=== PATIENT | female | born 1955 | race Caucasian/White ===

== ENCOUNTER → 2023-08-22 | Outpatient (CLI) | payer MEDICARE ==
[2023-08-22 09:50] LABS: Partial Thromboplastin Time 24.1 sec (22.0-30.0); Prothrombin Time 10.7 sec (10.0-12.5)
[2023-08-22 14:44] LABS: Basophils # (A) 0.04 X 10*3/uL (0.00-0.10); Eosinophils # (A) 0.08 X 10*3/uL (0.04-0.35); HCT 42.5 % (37.2-46.3); Immature Grans, Automated 0 %; Lymphocytes # (A) 1.26 X 10*3/uL (0.90-5.00); MCH 30.5 pg (27.0-32.0); MCHC 32.9 g/dL (32.0-37.0); MCV 92.6 FL (80.0-97.0); Mean Platelet Volume 10.4 FL (9.5-12.2); Monocytes # (A) 0.36 X 10*3/uL (0.20-1.00); Monocytes % (A) 8.9 %; NRBC Per 100 WBC 0 X 10*3/uL (0.00-0.01); Neutrophils # (A) 2.32 X 10*3/uL (1.80-7.70); Neutrophils % (A) 57.1 %; Platelet Count 274 X 10*3/uL (140-440); RBC 4.59 X 10*6/uL (4.10-5.20); RDW 15.9 % (11.5-14.5); WBC 4.06 X 10*3/uL (4.50-10.00)
[2023-08-22 15:07] LABS: ALT 20 U/L (8-44); AST 25 U/L (13-35); Albumin 4.8 g/dL (3.8-4.9); Albumin/Globulin Ratio 1.71 Ratio (1.60-3.17); Alkaline Phosphatase 66 U/L (41-126); Blood Urea Nitrogen 15.2 mg/dL (9.0-27.0); Calcium 9.7 mg/dL (8.7-10.3); Carbon Dioxide 23.7 mmol/L (21.6-31.8); Chloride 107 mmol/L (96-109); Chol/HDL Ratio 3.01 Ratio; Globulin 2.8 g/dL (1.6-3.3); Glucose 134 mg/dL (70-110); LDL Cholesterol,Calculated 123.1 mg/dL (0.0-131.0); Potassium 4.2 mmol/L (3.5-5.5); Sodium 143 mmol/L (135-145); T4, Free (Free Thyroxine) 1.52 ng/dL (0.80-1.80); Total Bilirubin 1.2 mg/dL (0.3-1.2); Total Protein 7.6 g/dL (6.2-8.2)
== END | disposition home or self-care (01) ==
LOC: LABPAT 08:56
PROVIDERS: ATTEND Orthopaedic Surgery
DX: Z01.818 Encounter for other preprocedural examination (principal); I51.89 Other ill-defined heart diseases; M17.12 Unilateral primary osteoarthritis, left knee; Z22.322 Carrier or suspected carrier of Methicillin resistant Staphylococcus aureus; R94.31 Abnormal electrocardiogram [ECG] [EKG]
CPT/HCPCS: 36415; 80053; 80061; 82306; 84439; 84443; 85025; 85610; 85730; 87070; 93005

== ENCOUNTER 2023-09-19 05:38 | Inpatient (IN) | payer MEDICARE ==
[~2023-09-19 05:38] MED LIST: ACETAMINOPHEN TAB 500 MG TAB PO PRN; TRANEXAMIC 1,000 MG/100ML-NACL 1,000 MG in SALINE 1 100ML.BAG IVPB PRN
[2023-09-19] MEDS ORDERED: LIDOCAINE 1% (10MG/ML) FOR IV START INTRADERMA PRN (05:40)
[2023-09-19] MEDS: IV FLUID CONTINUATION 1,000 ML IV ONE (06:07)
[2023-09-19] MEDS: DEXAMETHASONE SOD PHOSPHATE 4 MG/ML 1 ML VIAL IV ONE (06:24)
[2023-09-19] MEDS: GABAPENTIN 300 MG CAP PO PRN (06:24)
[2023-09-19] MEDS: MELOXICAM 7.5 MG TAB PO PRN (06:24)
[2023-09-19] MEDS: LACTATED RINGERS 1,000 ML IV SCH (06:24)
[2023-09-19] MEDS: ONDANSETRON 4 MG/2 ML VIAL IVP ONE (06:24)
[2023-09-19] MEDS: MIDAZOLAM 2 MG/2 ML VIAL IVP ONE (06:34)
[2023-09-19] MEDS ORDERED: HYDROmorphone (PF) 1 MG/ML ONE (06:56)
[2023-09-19] MEDS ORDERED: TRANEXAMIC 1,000 MG/100ML-NACL PREMIX BAG ONE (06:56)
[2023-09-19] MEDS ORDERED: SODIUM CHLORIDE 0.9% (PF) 10 ML VIAL ONE (06:56)
[2023-09-19] MEDS ORDERED: MIDAZOLAM 2 MG/2 ML VIAL ONE (06:56)
[2023-09-19] MEDS ORDERED: DEXAMETHASONE SOD PHOSPHATE 4 MG/ML 1 ML VIAL ONE (06:56)
[2023-09-19] MEDS ORDERED: PHENYLEPHRINE 10 MG/ML VIAL ONE (06:56)
[2023-09-19] MEDS ORDERED: ROPIVACAINE 5 MG/ML 30 ML VIAL ONE (06:56)
[2023-09-19] MEDS ORDERED: PROPOFOL 10 MG/ML 20 ML VIAL IV ONE (06:56)
[2023-09-19] MEDS: ceFAZolin 1,000 MG in SODIUM CHLORIDE 0.9% 1,000 ML IRRIGATION ONE (07:00)
[2023-09-19] MEDS: ceFAZolin 3 GM in SODIUM CHLORIDE 0.9% 100 ML IVPB PRN (07:00)
[2023-09-19] MEDS: LACTATED RINGERS 1,000 ML IV ONE (08:10)
--- NOTE | 2023-09-19 08:44 | P.OP ---
Date of Procedure: 09/19/23 Preoperative Diagnosis: Severe osteoarthritis left knee Postoperative Diagnosis: Severe osteoarthritis left knee Procedure(s) Performed: Left total knee arthroplasty Implants: [employer] Nephew Journey II Oxinium Bi-cruciate stabilized femoral component size 6, left [employer] Journey nonporous tibial baseplate size 5, left [employer] Journey II, constraines articular insert, size 11 mm, Size 5-6, left [employer] Journey Kandy II resurfacing patellar component, oval, 32 mm All components were cemented using Palacos R bone cement The articulation is Oxinium on polyethylene Anesthesia: spinal Surgeon: Charan Rivero Treating Plant Operator #1: Esperanza Santiago Estimated Blood Loss (ml): 75 Pathology: none sent Condition: stable Disposition: PACU Indications for Procedure: The patient's knee is end-stage, and conservative management has failed. The operation of knee replacement has been discussed at length in the office, as well as potential risks and complications. These are inclusive of, but not limited to: Infection, bleeding, scarring, discomfort, stiffness, blood vessel and nerve damage, need for further surgery, failure to relieve symptoms, persistence, recurrence, or worsening of problems, loosening, dislocation, wear, blood clot, pulmonary embolism, , gait dysfunction, stiffness, and other risks as discussed in the office. Patient elects to proceed and the consent form has been signed. Operative Findings: The operative findings are consistent with severe osteoarthritis of the left knee Description of Procedure: The patient was seen in the preoperative area, the consent was reviewed and the operative site was marked with a skin marker. The patient verified the procedure and the operative site. An adductor canal pain catheter and an iPACK block were placed by anesthesia in the preoperative area. The patient was then brought to the operating room and positioned on the operating room table in the supine position. Preoperative antibiotics and a gram of tranexamic acid were given intravenously. A spinal anesthetic was administered by the anesthesia department. Care was taken to make sure that all pressure points were adequately padded. A tourniquet was placed on the upper thigh and the lower extremity was prepped with ChloraPrep and draped in usual sterile fashion. A universal time-out was then performed which confirmed the patient's name, surgical site, ALLERGIES, and consent. The lower extremity was then exsanguinated and tourniquet was inflated to 250 mmHg. A standard anterior midline approach to the knee was performed. The skin and subcutaneous tissue were sharply dissected down to the patellar tendon. A medial parapatellar arthrotomy was then performed. The knee was then extended, the patellar was everted, and the knee was flexed. The infra-patellar fat pad was removed in order to enhance exposure. The anterior horns of both menisci were excised, and a release was performed to the posterior medial aspect of the knee. On gross visual inspection, there was complete loss of articular cartilage in the medial and patellofemoral joint spaces. There was also significant cartilage damage in the lateral compartment. There were multiple periarticular osteophytes globally about the knee which were then removed with a Ronguer. The femoral canal was then opened with the 9.5 mm intramedullary drill. The 8 mm intramedullary natahniel was then inserted into the femoral canal with the distal femoral cutting guide set for 5 of valgus. The distal femoral cutting block was then pinned in place. The intramedullary nathaniel was then removed, and the distal femur was then cut. The cutting block was then removed and the cut was checked for symmetry. The resected bone was then measured to co nfirm the appropriate distal femoral resection. Next, the sizing guide was then placed and set for 3 external rotation based off of the epicondylar axis and [place]'s line. Pins were then placed and the drill holes, and the femur was sized with the sizing stylus. The pins were then removed, and the sizing guide was then removed. The spikes of the appropriate size femoral block was then placed into the predrilled holes, and malleted into place. Two 45 mm pins were then placed into the fixation holes on the cutting block. An tito wing was then used to ensure there would be no notching with the anterior cut. The anterior condyles were cut without notching. The anterior chord cut was then performed, followed by the posterior cut, posterior chamfer cut, and the anterior chamfer cut. The collateral ligaments were protected during the entire process. The cutting block was then removed. Any remaining bone and osteophytes were removed from the femur with a Ronguer. Attention was then directed to the tibia. The remaining ACL was removed with a Ronguer, and the tibia was then gently subluxed forward with a large bent knee retractor. Any remaining menisci were excised. The posterior lateral corner was cauterized in order to coagulate the lateral geniculate artery. The extra medullary tibial cutting guide was then placed, set for the appropriate rotation, slope, and depth of resection. The proximal tibia cutting guide was then pinned in place. Proximal tibia was then cut and sized. A curved osteotome was then used to remove any posterior osteophytes from the distal femur. The femoral trial was placed. The box reaming guide was then used to remove the intracondylar femoral bone. The box notch trial was then placed. The tibial trial was placed with the appropriate-sized insert. The knee was able to fully extend and flex to 130 and was stable throughout all range of motion. The knee was then extended and the patella was everted. Patella was then measured, and then using an osteotomy guide, the patella was cut at the appropriate level. The patellar component was sized. The patellar drill guide was placed and the patella was drilled. The patella trial was then placed. The knee was then taken through range of motion with the patella trial and the patella tracked normally using the no thumbs technique. The patella trial was then removed. Th e knee was then flexed and lug holes were drilled through the femoral trial and the femoral trial was then removed. The tibial was then re-exposed, and the tibial broach guide was then pinned in place after it was set for the appropriate rotation to allow for the most coverage without overhang. The tibia was then reamed and broached. The femoral canal was plugged with autologous bone. The cut surfaces of bone were then irrigated with pulsatile lavage. The knee was also irrigated with Irrisept solution. The components were then opened, the cement was mixed. Cement was placed on the backside of the femoral, tibial, and patellar components. Cement was then applied to the tibial surface and pressurized into the surface using finger pressurization technique. The tibial component was the n applied and excess cement was removed after it was impacted securely noted to be flush with the cut surface. In similar fashion, the cement was applied to the cut femoral surface, pressurized and using finger pressurization the component was impacted in place. Excess cement was removed. The polyethylene spacer was then implanted and locked into position. Patellar component was then applied in a similar technique and the patellar clamp was used to hold patella in place while the cement hardened. The knee was held in full extension while the cement hardened. Once the cement had fully hardened, the knee was reinspected. Any other cement extrusion was removed the final range of motion testing showed range of motion from 0-115 with excellent stability, both medial and laterally and appropriate alignment of the leg. Patella tracked normally. After the cemented hardened, the tourniquet was released and hemostasis was obtained. A second gram of transexamic acid was given intravenously. The knee was again irrigated. The knee was again taken through range of motion and found to be stable throughout all range of motion of 0-115, and the patella tracked normally. The fascia was then closed with 0 Vicryl followed by #2 strata fix suture. The subcutaneous tissue was closed with 3-0 Vicryl and 3-0 strata fix. Exofin glue was used for the skin and placed with the knee in flexion. After the glue had dried, and Optafoam silver impregnated dressing was applied. A lightly compressive dressing was applied using web roll and Godlen wrap. Patient was then transferred to the stretcher and taken to recovery room in stable condition. Sponge and needle counts were correct. The assistant golf course superintendent EUNICE Rojas was required due the complexity surgery and the need for a skilled certified surgical assistant. She assisted in positioning, draping, retraction, and closure of the wound.
[2023-09-19] MEDS ORDERED: NA PHOS,M-B/NA PHOS,DI-BA 133 ML ENEMA RECTAL PRN (09:28)
[2023-09-19] MEDS ORDERED: bisacodyL 10 MG SUPP RECTAL PRN (09:28)
[2023-09-19] MEDS ORDERED: MAGNESIUM HYDROXIDE 2,400 MG/30 ML CUP PO PRN (09:28)
[2023-09-19] MEDS ORDERED: NALOXONE 0.4 MG/ML 1 ML VIAL IV PRN (09:28)
[2023-09-19] MEDS ORDERED: HYDROmorphone 0.5 MG/0.5 ML SYRINGE IVP PRN ×2 (09:28)
[2023-09-19] MEDS ORDERED: ONDANSETRON 4 MG/2 ML VIAL IVP PRN (09:28)
[2023-09-19] MEDS ORDERED: HYDROcodone/APAP 7.5-325MG 1 EACH TAB PO PRN (09:29)
[2023-09-19] MEDS: HYDROmorphone 0.5 MG/0.5 ML SYRINGE IVP PRN (09:59)
--- NOTE | 2023-09-19 10:04 | XR ---
EXAMINATION TYPE: XR knee limited LT DATE OF EXAM: 09/19/2023 COMPARISON: NONE CLINICAL INDICATION: Female, 68 years old with history of Evaluation for Postop abnormality and align ment; FINDINGS: Extensive soft tissue edema and emphysema\air which could be postsurgical. Postoperative changes comp atible with knee arthroplasty surgery. Anatomic alignment. IMPRESSION: Postoperative changes.
[2023-09-19] MEDS: SODIUM CHLORIDE 0.9% 1,000 ML IV SCH (10:11)
[2023-09-19] MEDS: droPERidol 5 MG/2 ML VIAL IVP ONE (11:23)
[2023-09-19] MEDS: HYDROcodone/APAP 7.5-325MG 1 EACH TAB PO PRN (12:14)
--- NOTE | 2023-09-19 14:57 | P.CONS ---
History of Present Illness - Reason for Consult Consult date: 09/19/23 - History of Present Illness Patient is a 68-year-old female with history of hypertension, hypothyroidism, GERD presenting for elective left total knee arthroplasty. [facility] [place] physicians consulted for medical management. Currently denying any chest pain, shortness of breath, abdominal pain, nausea, vomiting, urinary or bowel complaints. Denies any lightheadedness, or palpitations. Labs not available. Knee x-ray shows postop changes. Vital signs reviewed, currently within normal limits. At 1 point blood pressure was 87/70. Patient saturating well on room air. Pertinent positives and negatives as discussed in HPI, a complete review of systems was performed and all other systems are negative. Patient seen and examined at bedside. Vital signs reviewed General: nontoxic, no distress, appears at stated age, morbidly obese Derm: warm, dry, knee dressing clean, dry, intact Head: atraumatic, normocephalic, symmetric Eyes: EOMI, no lid lag, anicteric sclera, pupils equal round reactive to light ENT: Nose and ears atraumatic Neck: No thyromegaly, supple Mouth: no lip lesion, mucus membranes moist Cardiovascular: S1S2 reg, no murmur, no edema Lungs: clear to auscultation bilateral, no rhonchi, no rales, no wheeze, no accessory muscle use Abdominal: soft, nontender to palpation, no guarding, no appreciable organomegaly Ext: no gross muscle atrophy, muscle strength muscle strength 5 out of 5 in all 4 extremities, no contractures Neuro: CN II-XII grossly intact Psych: Alert, oriented, appropriate affect Assessment/Plan: Status post left total knee arthroplasty -Pain control with oral [place] as needed, IV Dilaudid as needed, monitor for sedation -Senna 2 nightly, milk of magnesium as needed, Fleet enema as needed, bisacodyl as needed -Aspirin 325 twice daily for DVT prophylaxis Hypertension -Patient had episode of hypotension earlier, hold home lisinopril and amlodipine. -If blood pressure within normal limits tomorrow, restart Hypothyroidism -Continue Synthroid 200 mcg daily GERD -Continue Protonix 40 mg daily Neuropathic pain -Continue duloxetine 90 nightly Thank you for allowing us to participate in the care of this pleasant patient. Do not hesitate to contact us with questions. Someone can be reached from the [facility] hospitalist group all hours of the day at [phone] or via [employer]. Past Medical History Past Medical History: Hypertension, Osteoarthritis (OA), Thyroid Disorder Additional Past Medical History / Comment(s): back pain, tinnitus History of Any Multi-Drug Resistant Organisms: None Reported Past Surgical History: Cholecystectomy, Joint Replacement Additional Past Surgical History / Comment(s): rt hip replaced Past Anesthesia/Blood Transfusion Reactions: No Reported Reaction Additional Past Anesthesia/Blood Transfusion Reaction / Comm: no blood tx hx Past Psychological History: Depression Smoking Status: Former smoker Past Alcohol Use History: Occasional Additional Past Alcohol Use History / Comment(s): quit 20 plus years ago Past Drug Use History: Marijuana Additional Drug Use History / Comment(s): hold for 24 hours prior to procedure - Past Family History Sister(s) Family Medical History: Cancer, Deep Vein Thrombosis (DVT) Additional Family Medical History / Comment(s): brain Medications and Allergies Home Medications Medication Instructions Recorded Confirmed Type Acetaminophen [Tylenol Extra 500 mg PO Q8H 09/13/23 09/13/23 History Strength] Calcium Magnesium 1 tab PO DAILY 09/13/23 09/19/23 History Co Q 10 600 mg PO DAILY 09/13/23 09/13/23 History DULoxetine HCL [Cymbalta] 90 mg PO HS 09/13/23 09/19/23 History Essential One 1 tab PO DAILY 09/13/23 09/19/23 History Etodolac [Lodine] 200 mg PO BID 09/13/23 09/13/23 History Fluticasone Propionate [Flonase 1 spray EA NOSTRIL DAILY PRN 09/13/23 09/19/23 History Allergy Relief] Mindi (Unk) 200 mg PO DAILY 09/13/23 09/13/23 History Hair Skin Nails 1 tab PO DAILY 09/13/23 09/19/23 History L.acidoph,Paracasei, B.lactis 1 each PO DAILY 09/13/23 09/19/23 History [Probiotic] Levothyroxine Sodium [Levoxyl] 200 mcg PO DAILY 09/13/23 09/13/23 History Mealtonin 4 mg PO HS 09/13/23 09/19/23 History Omeprazole [PriLOSEC] 15 mg PO DAILY 09/13/23 09/13/23 History Tumeric 200 mg PO DAILY 09/13/23 09/13/23 History Vit D3 75 mcg PO DAILY 09/13/23 09/13/23 History amLODIPine BESYLATE 5 mg PO DAILY 09/13/23 09/13/23 History lisinopriL [Zestril] 20 mg PO DAILY 09/13/23 09/13/23 History Aspirin 325 mg PO BID #60 tab 09/19/23 Rx HYDROcodone/APAP 7.5-325MG [[place] 1 - 2 tab PO Q6H PRN #32 tab 09/19/23 Rx 7.5-325] Sennosides [Senokot] 2 tab PO DAILY PRN #60 tablet 09/19/23 Rx Allergies Allergy/AdvReac Type Severity Reaction Status Date / Time almond Allergy Anaphylaxis Verified 09/19/23 05:59 Penicillins Allergy Rash/Hives Verified 09/19/23 05:59 cherries Allergy Anaphylaxis Uncoded 09/13/23 16:02 peaches Allergy Anaphylaxis Uncoded 09/13/23 16:02 Physical Exam Vitals: Vital Signs Temp Pulse Pulse Resp BP BP Pulse Ox 09/19/23 12:34 120 H 132/75 93 L 09/19/23 12:27 123 H 87/70 95 09/19/23 11:41 97.4 F L 103 H 18 115/73 98 09/19/23 11:35 97.4 F L 105 H 18 115/73 97 09/19/23 11:34 97.6 F 09/19/23 11:03 98 16 141/63 98 09/19/23 10:49 90 16 136/71 98 09/19/23 10:34 85 16 148/66 98 09/19/23 10:18 84 16 154/70 98 09/19/23 10:05 77 16 132/61 98 09/19/23 09:50 74 16 112/56 98 09/19/23 09:30 62 16 85/53 98 09/19/23 09:23 97.8 F 74 16 86/48 92 L 09/19/23 06:53 142/71 09/19/23 06:51 92 24 98 09/19/23 06:45 90 18 133/61 96 09/19/23 06:16 98.3 F 96 22 190/89 95 Intake and Output 09/18/23 09/19/23 09/19/23 22:59 06:59 14:59 Intake Total 200 1701 Output Total 75 Balance 200 1626 Intake: IV 200 1701 Output: Estimated Blood Loss 75 Other: # Voids 1 Weight 148.7 kg 148.7 kg
[2023-09-19] MEDS: ceFAZolin 3 GM in SODIUM CHLORIDE 0.9% 100 ML IVPB SCH (17:31)
[2023-09-19] MEDS: SENNOSIDES-DOCUSATE SODIUM 1 EACH TAB PO SCH (20:59)
[2023-09-19] MEDS: DULoxetine HCL 30 MG CAPSULE.DR PO SCH (20:59)
[2023-09-19] MEDS: ASPIRIN 325 MG TAB PO SCH (20:59)
[2023-09-20] MEDS: HYDROmorphone 0.5 MG/0.5 ML SYRINGE IVP PRN (03:20)
[2023-09-20] MEDS: LEVOTHYROXINE 100 MCG TAB PO SCH (05:50)
[2023-09-20 09:04] LABS: Basophils # (A) 0.02 X 10*3/uL (0.00-0.10); Basophils % (A) 0.4 %; Eosinophils # (A) 0.01 X 10*3/uL (0.04-0.35); Eosinophils % (A) 0.2 %; HCT 31.5 % (37.2-46.3); Lymphocytes # (A) 0.91 X 10*3/uL (0.90-5.00); MCH 30.7 pg (27.0-32.0); MCHC 31.7 g/dL (32.0-37.0); MCV 96.6 FL (80.0-97.0); Mean Platelet Volume 10.9 FL (9.5-12.2); Monocytes # (A) 0.81 X 10*3/uL (0.20-1.00); Monocytes % (A) 14.3 %; NRBC Per 100 WBC 0 X 10*3/uL (0.00-0.01); Neutrophils # (A) 3.92 X 10*3/uL (1.80-7.70); Neutrophils % (A) 68.9 %; Platelet Count 193 X 10*3/uL (140-440); RBC 3.26 X 10*6/uL (4.10-5.20); RDW 15.4 % (11.5-14.5); WBC 5.68 X 10*3/uL (4.50-10.00)
[2023-09-20 09:06] LABS: BUN/Creat Ratio 16.12 Ratio (12.00-20.00); Blood Urea Nitrogen 12.9 mg/dL (9.0-27.0); Calcium 8.6 mg/dL (8.7-10.3); Carbon Dioxide 22.3 mmol/L (21.6-31.8); Chloride 106 mmol/L (96-109); Glucose 117 mg/dL (70-110); Potassium 3.6 mmol/L (3.5-5.5); Sodium 139 mmol/L (135-145)
[2023-09-20] MEDS: PANTOPRAZOLE 40 MG TABLET PO SCH (09:29)
--- NOTE | 2023-09-20 11:35 | P.PN ---
Subjective Progress Note Date: 09/20/23 This is a 68-year-old fe male who is status post left total knee arthroplasty. This is postoperative day #1 And patient is seen and evaluated at bedside with Dr. Charan Rivero. Patient states that her pain is well-controlled and she was able to walk with physical therapy today. Patient states that she is hoping to discharge home with home care tomorrow. Objective - Vital Signs Vital signs: Vital Signs Temp 98.1 F 09/20/23 07:19 Pulse 96 09/20/23 07:19 Resp 18 09/20/23 07:19 BP 127/51 09/20/23 07:19 Pulse Ox 95 09/20/23 07:19 FiO2 Intake & Output 09/19/23 09/20/23 09/20/23 18:59 06:59 18:59 Intake Total 1701 Output Total 75 Balance 1626 Weight 148.7 kg Intake: IV 1701 Output: Estimated Blood Loss 75 Other: Voiding Method Toilet # Voids 2 1 - Exam Vital signs are stable. Patient is in no acute distress and is alert and oriented 3. Calf is soft and nontender to palpation. Dressing is clean, dry, and intact. Patient has full foot and ankle motion without pain or difficulty. Sensation intact. Neurovascular status and circulatory status are intact. - Labs CBC & Chem 7: 09/20/23 04:46 09/20/23 04:46 Assessment and Plan (1) Osteoarthritis of left knee Current Visit: Yes Status: Acute Code(s): M17.12 - UNILATERAL PRIMARY OSTEOARTHRITIS, LEFT KNEE SNOMED Code(s): 142504025003899 (2) Status post total left knee replacement Current Visit: Yes Status: Acute Code(s): Z96.652 - PRESENCE OF LEFT ARTIFICIAL KNEE JOINT SNOMED Code(s): 1970842871464 Plan: #1 Continue with routine postoperative care and pain control, leave dressing in place for 7 days. #2 Anticoagulation with aspirin. #3 Physical therapy today. #4 Appreciate input from internal medicine. #5 Anticipate discharge home with home care tomorrow.
--- NOTE | 2023-09-20 13:42 | P.PN ---
Subjective Progress Note Date: 09/20/23 Patient is a 68-year-old female with history of hypertension, hypothyroidism, GERD presenting for elective left total knee arthroplasty. [facility] physicians consulted for medical management. Subjective Pertinent When I saw the patient she was denying any acute complaints. I was later told by the nurse that patient has been having multiple episodes of sneezing. I started the patient on Claritin and Flonase. Vital signs reviewed General examination - Alert and Oriented 3 in NAD Heart - + S1S2 no murmurs Lungs - Clear to auscultation Abdomen soft NT ND +ve BS, obese Extremities -right knee bandage appears intact and dry STUDENT SUPPORT SERVICES DIRECTOR - Moving all 4 extremities spontaneously Psych - Calm and cooperative Assessment/Plan: Status post left total knee arthroplasty -Pain control as per primary team -Senna 2 nightly, milk of magnesium as needed, Fleet enema as needed, bisacodyl as needed -Aspirin 325 twice daily for DVT prophylaxis Allergies Claritin and Flonase started Hypertension - hold home lisinopril and amlodipine. -Patient blood pressure has been within normal limits while off the BP meds. If systolic blood pressure greater than 140 will add blood pressure meds 1 at a time. I discussed this with the patient. Patient can also do this at home so should not hold up discharge. Hypothyroidism -Continue Synthroid 200 mcg daily GERD -Continue Protonix 40 mg daily Neuropathic pain -Continue duloxetine 90 nightly Thank you for consulting us on this patient. Please do not hesitate to contact [facility] emergency department physicians group for any questions. Objective - Vital Signs Vital signs: Vital Signs Temp 98.1 F 09/20/23 07:19 Pulse 96 09/20/23 07:19 Resp 18 09/20/23 07:19 BP 127/51 09/20/23 07:19 Pulse Ox 95 09/20/23 07:19 FiO2 Intake & Output 09/19/23 09/20/23 09/20/23 18:59 06:59 18:59 Intake Total 1701 Output Total 75 Balance 1626 Weight 148.7 kg Intake: IV 1701 Output: Estimated Blood Loss 75 Other: Voiding Method Toilet # Voids 2 1 1 - Labs CBC & Chem 7: 09/20/23 04:46 09/20/23 04:46 Labs: Abnormal Lab Results - Last 24 Hours (Table) 09/20/23 09/20/23 Range/Units 04:46 04:46 RBC 3.26 L (4.10-5.20) X 10*6/uL Hgb 10.0 L (12.0-15.0) g/dL Hct 31.5 L (37.2-46.3) % MCHC 31.7 L (32.0-37.0) g/dL RDW 15.4 H (11.5-14.5) % Eosinophils # 0.01 L (0.04-0.35) X 10*3/uL Glucose 117 H (70-110) mg/dL Calcium 8.6 L (8.7-10.3) mg/dL
[2023-09-20] MEDS: LORATADINE 10 MG TAB PO SCH (16:22)
[2023-09-21 03:26] VITALS: RESP 15
[2023-09-21 08:32] VITALS: BP 137/82; PULSE 115; TEMP 98.8
[2023-09-21] MEDS: FLUTICASONE 50MCG/SPRAY NASAL 16GM EA NOSTRIL SCH (10:17)
--- NOTE | 2023-09-21 10:25 | P.PN ---
Subjective Progress Note Date: 09/21/23 Patient is a 68-year-old female with history of hypertension, hypothyroidism, GERD presenting for elective left total knee arthroplasty. [facility] physicians consulted for medical management. Subjective Patient seen this morning.she denies any acute complaints. She is looking forward to going home. She states that the surgeon came in this morning and said that as long as she is able to climb the stairs with physical therapy she can go home. Vital signs reviewed General examination - Alert and Oriented 3 in NAD Heart - + S1S2 no murmurs Lungs - Clear to auscultation Abdomen soft NT ND +ve BS, obese Extremities -right knee bandage appears intact and dry CUSTOMER SOLUTIONS ARCHITECT - Moving all 4 extremities spontaneously Psych - Calm and cooperative Assessment/Plan: Status post left total knee arthroplasty -Pain control as per primary team -Senna 2 nightly, milk of magnesium as needed, Fleet enema as needed, bisacodyl as needed -Aspirin 325 twice daily for DVT prophylaxis Allergies Claritin and Flonase started Hypertension -Will resume lisinopril on discharge. Hold amlodipine Hypothyroidism -Continue Synthroid 200 mcg daily GERD -Continue Protonix 40 mg daily Neuropathic pain -Continue duloxetine 90 nightly Patient stable for discharge from a medical standpoint. Medication reconciliation completed. Thank you for consulting us on this patient. Please do not hesitate to contact [facility] physicians group for any questions. Objective - Vital Signs Vital signs: Vital Signs Temp 98.8 F 09/21/23 07:31 Pulse 115 H 09/21/23 07:31 Resp 15 09/21/23 00:50 BP 137/82 09/21/23 07:31 Pulse Ox 93 L 09/21/23 07:54 FiO2 Intake & Output 09/20/23 09/21/23 09/21/23 18:59 06:59 18:59 Intake Total 220 Balance 220 Intake: Oral 220 Other: # Voids 2 4 - Labs CBC & Chem 7: 09/20/23 04:46 09/20/23 04:46
--- NOTE | 2023-09-21 10:47 | P.DS ---
Providers Date of admission: 09/19/23 09:18 Expected date of discharge: 09/21/23 Attending physician: Charan Rivero Consults: 09/19/23 09:28 Consult Physician Routine Consulting Provider: Peter Amaral Consult Reason/Comments: medical management Do you want consulting provider notified?: Yes Primary care physician: Mike Almanzar - Discharge Diagnosis(es) (1) Osteoarthritis of left knee Current Visit: Yes Status: Acute (2) Status post total left knee replacement Current Visit: Yes Status: Acute Hospital Course: This is a 68-year-old female with known history of degenerative arthritis of the left knee. The patient presented for evaluation as an outpatient. After discussion and consideration patient elects to proceed with total knee arthroplasty. The patient is seen preoperatively by Dr. Rivero and medically cleared for surgery by their primary care physician. Patient is admitted to [facility] on 09/19/2023 for total knee arthroplasty. The procedure is performed without complication or sequelae. The patient is doing well postoperatively. Labs and vital signs are stable on day of discharge. On day of discharge patient's knee incision is healing well. There is minimal erythema. There is no drainage noted at this time. There is minimal soft tissue swelling to the knee. Patient has full foot and ankle motion without difficulty or pain. Calf is soft and nontender to palpation. Neurovascular status to the left lower extremity is intact. Patient is discharged home in good condition. Please see med rec for accurate list of home medications. Plan - Discharge Summary Discharge Rx Participant: Yes New Discharge Prescriptions: New Sennosides [Senokot] 2 tab PO DAILY PRN #60 tablet PRN Reason: Constipation Aspirin 325 mg PO BID #60 tab HYDROcodone/APAP 7.5-325MG [Oneida 7.5-325] 1 - 2 tab PO Q6H PRN #32 tab PRN Reason: Pain Continue Vit D3 75 mcg PO DAILY Mealtonin 4 mg PO HS L.acidoph,Paracasei, B.lactis [Probiotic] 1 each PO DAILY Mindi (Unk) 200 mg PO DAILY Fluticasone Propionate [Flonase Allergy Relief] 1 spray EA NOSTRIL DAILY PRN PRN Reason: Allergy Symptoms Essential One 1 tab PO DAILY Calcium Magnesium 1 tab PO DAILY DULoxetine HCL [Cymbalta] 90 mg PO HS lisinopriL [Zestril] 20 mg PO DAILY Levothyroxine Sodium [Levoxyl] 200 mcg PO DAILY Tumeric 200 mg PO DAILY Omeprazole [PriLOSEC] 15 mg PO DAILY Hair Skin Nails 1 tab PO DAILY Co Q 10 600 mg PO DAILY Discontinued Acetaminophen [Tylenol Extra Strength] 500 mg PO Q8H Etodolac [Lodine] 200 mg PO BID amLODIPine BESYLATE 5 mg PO DAILY Discharge Medication List Calcium Magnesium 1 tab PO DAILY 09/13/23 [History] Co Q 10 600 mg PO DAILY 09/13/23 [History] DULoxetine HCL [Cymbalta] 90 mg PO HS 09/13/23 [History] Essential One 1 tab PO DAILY 09/13/23 [History] Fluticasone Propionate [Flonase Allergy Relief] 1 spray EA NOSTRIL DAILY PRN 09/13/23 [History] Mindi (Unk) 200 mg PO DAILY 09/13/23 [History] Hair Skin Nails 1 tab PO DAILY 09/13/23 [History] L.acidoph,Paracasei, B.lactis [Probiotic] 1 each PO DAILY 09/13/23 [History] Levothyroxine Sodium [Levoxyl] 200 mcg PO DAILY 09/13/23 [History] Mealtonin 4 mg PO HS 09/13/23 [History] Omeprazole [PriLOSEC] 15 mg PO DAILY 09/13/23 [History] Tumeric 200 mg PO DAILY 09/13/23 [History] Vit D3 75 mcg PO DAILY 09/13/23 [History] lisinopriL [Zestril] 20 mg PO DAILY 09/13/23 [History] Aspirin 325 mg PO BID #60 tab 09/19/23 [Rx] Sennosides [Senokot] 2 tab PO DAILY PRN #60 tablet 09/19/23 [Rx] HYDROcodone/APAP 7.5-325MG [[place] 7.5-325] 1 - 2 tab PO Q6H PRN #32 tab 09/21/23 [Rx] Follow up Appointment(s)/Referral(s): [facility],Equipment [NON-STAFF] - As Needed (*Call [facility] once home to arrange delivery of the Continous Passive Motion (CPM) machine. ) Charan Rivero DO [Doctor of Osteopathic Medicine] - 2 Weeks [facility] Visiting Nurse, [NON-STAFF] - 1-2 Days ([facility] will call you to schedule your in home nursing and physical therapy visits. ) Activity/Diet/Wound Care/Special Instructions: Weightbearing as tolerated with a walker. CPM 5-6h daily as tolerated. Leave dressing intact. Dressing may be removed by home care nurse or by patient in 7 days. Then change dressing twice daily until follow up. May shower with initial dressing intact and after removal. If dressing become saturated, please remove. Recommend use of compression stockings daily until follow up to help prevent swelling and blood clots. May remove at night before sleeping. Please take aspirin 325mg twice daily for 30 days to prevent blood clots. Please follow up with [facility] and call with any questions or concerns, .
== END 2023-09-21 12:30 | disposition home health service (06) | DRG 470 ==
LOC: OR 05:38 → 4SSUR 09:18
PROVIDERS: ADMIT Orthopaedic Surgery; ATTEND Orthopaedic Surgery
PROC: 0SRD069 Replacement of Left Knee Joint with Oxidized Zirconium on Polyethylene Synthetic Substitute, Cemented, Open Approach (ICD-10-PCS; principal; 2023-09-19 07:00)
DX: M17.12 Unilateral primary osteoarthritis, left knee (principal); Z68.43 Body mass index [BMI] 50.0-59.9, adult; I10 Essential (primary) hypertension; E03.9 Hypothyroidism, unspecified; K21.9 Gastro-esophageal reflux disease without esophagitis; G62.9 Polyneuropathy, unspecified; F32.A Depression, unspecified; E66.01 Morbid (severe) obesity due to excess calories; Z96.641 Presence of right artificial hip joint; T78.40XA Allergy, unspecified, initial encounter; Z28.310 Unvaccinated for COVID-19; Z88.0 Allergy status to penicillin; Z79.82 Long term (current) use of aspirin; Z79.890 Hormone replacement therapy; Z79.899 Other long term (current) drug therapy; Z87.891 Personal history of nicotine dependence
CPT/HCPCS: 64448; 64999; 80048; 85025; 94760

== ENCOUNTER 2023-09-22 10:39 | Emergency (ER) | payer MEDICARE ==
--- NOTE | 2023-09-22 11:41 | ED ---
Extremity Problem HPI - General Chief complaint: Extremity Problem,Nontraumatic Stated complaint: L knee pain Time Seen by Provider: 09/22/23 11:37 Source: patient, EMS, RN notes reviewed Mode of arrival: EMS Limitations: no limitations - History of Present Illness Initial comments: 68-year-old female presented to the ER via EMS with a chief complaint of left knee pain. Patient underwent a total knee arthroplasty by Dr. Rivero on Tuesday09/19/23. She was hospitalized until yesterday 09/21/23. Patient reports since being home she has been having difficulty caring for herself due to her knee. SHe has been having difficulty going up her stairs and getting out of her chair. She reports she was not sent home with any resources like PT or lift chair. She is currently taking Gary for pain which is helping. She presents to the ER as she was unable to get out of her chair to go to the restroom. She denies any fevers, chills, chest pain, shortness of breath, abdominal pain, calf pain/tenderness. - Related Data Home Medications Medication Instructions Recorded Confirmed DULoxetine HCL [Cymbalta] 90 mg PO HS 09/13/23 09/22/23 Essential One 1 tab PO DAILY 09/13/23 09/22/23 Fluticasone Propionate [Flonase 1 spray EA NOSTRIL DAILY PRN 09/13/23 09/22/23 Allergy Relief] L.acidoph,Paracasei, B.lactis 1 cap PO DAILY 09/13/23 09/22/23 [Probiotic] Levothyroxine Sodium [Levoxyl] 200 mcg PO MOTUWETHFR 09/13/23 09/22/23 lisinopriL [Zestril] 20 mg PO DAILY 09/13/23 09/22/23 Calcium Carbonate [Calcium] 600 mg PO DAILY 09/22/23 09/22/23 Cholecalciferol [Vitamin D3 (25 75 mcg PO DAILY 09/22/23 09/22/23 Mcg = 1000 Iu)] Mindi 500 mg PO DAILY 09/22/23 09/22/23 Levothyroxine Sodium [Levoxyl] 100 mcg PO SUSA 09/22/23 09/22/23 Melatonin 5 mg PO HS 09/22/23 09/22/23 Omeprazole 20 mg PO DAILY 09/22/23 09/22/23 Turmeric Root Extract [Turmeric] 500 mg PO DAILY 09/22/23 09/22/23 Ubidecarenone [Co Q-10] 600 mg PO DAILY 09/22/23 09/22/23 Vitamin C/Biotin [Hair, Skin and 1 tab PO DAILY 09/22/23 09/22/23 Nails Chew] Previous Rx's Medication Instructions Recorded Aspirin 325 mg PO BID #60 tab 09/19/23 Sennosides [Senokot] 2 tab PO DAILY PRN #60 tablet 09/19/23 HYDROcodone/APAP 7.5-325MG [Gary 1 - 2 tab PO Q6H PRN #32 tab 09/21/23 7.5-325] Allergies Allergy/AdvReac Type Severity Reaction Status Date / Time almond Allergy Anaphylaxis Verified 09/22/23 11:45 Penicillins Allergy Rash/Hives Verified 09/22/23 11:45 cherries Allergy Anaphylaxis Uncoded 09/22/23 11:45 peaches Allergy Anaphylaxis Uncoded 09/22/23 11:45 Review of Systems ROS Statement: Those systems with pertinent positive or pertinent negative responses have been documented in the HPI. ROS Other: All systems not noted in ROS Statement are negative. Past Medical History Past Medical History: Hypertension, Osteoarthritis (OA), Thyroid Disorder Additional Past Medical History / Comment(s): back pain, tinnitus History of Any Multi-Drug Resistant Organisms: None Reported Past Surgical History: Cholecystectomy, Joint Replacement Additional Past Surgical History / Comment(s): rt hip replaced Past Anesthesia/Blood Transfusion Reactions: No Reported Reaction Additional Past Anesthesia/Blood Transfusion Reaction / Comment(s): no blood tx hx Past Psychological History: Depression Smoking Status: Former smoker Past Alcohol Use History: Occasional Past Drug Use History: Marijuana - Past Family History Sister(s) Family Medical History: Cancer, Deep Vein Thrombosis (DVT) Additional Family Medical History / Comment(s): brain General Exam Limitations: no limitations General appearance: alert, in no apparent distress Respiratory exam: Present: normal lung sounds bilaterally. Absent: respiratory distress, wheezes, rales, rhonchi, stridor Cardiovascular Exam: Present: regular rate, normal rhythm, normal heart sounds. Absent: systolic murmur, diastolic murmur, rubs, gallop, clicks Extremities exam: Present: normal inspection, full ROM, tenderness (left knee. bruising to left knee. vertical surgical incision present. No surrounding erythema or purulent drainage present. 2+ left dorsalis pedis pulse. Edema to left lower extremity. Nonpitting), normal capillary refill. Absent: pedal edema, joint swelling, calf tenderness Neurological exam: Present: alert, oriented X3, CN II-XII intact Skin exam: Present: warm, dry, intact, normal color. Absent: rash Course Vital Signs 09/22/23 09/22/23 10:43 13:59 Temperature 98.7 F 98.8 F Pulse Rate 109 H 92 Respiratory 16 18 Rate Blood Pressure 148/83 146/62 O2 Sat by Pulse 97 95 Oximetry Medical Decision Making - Medical Decision Making Was pt. sent in by a medical professional or institution (, PA, ELEMENTARY EDUCATION TUTOR, urgent care, hospital, or [facility]...) When possible be specific @ -No Did you speak to anyone other than the patient for history (EMS, parent, family, police, friend...)? What history was obtained from this source @ -No Did you review nursing and triage notes (agree or disagree)? Why? @ -I reviewed and agree with nursing and triage notes Were old charts reviewed (outside hosp., previous admission, EMS record, old EKG, old radiological studies, urgent care reports/EKG's, [facility] records)? Report findings @ -Yes, operative note (09/19/23) and discharge summary (09-21-2023) Patient u nderwent a total knee arthroplasty by Dr. Rivero. Patient discharged yesterday with home care. Differential Diagnosis (chest pain, altered mental status, abdominal pain women, abdominal pain men, vaginal bleeding, weakness, fever, dyspnea, syncope, headache, dizziness, GI bleed, back pain, seizure, CVA, palpatations, mental health, musculoskeletal)? @ -Differential Musculoskeletal: Muscular strain, contusion, ligament sprain, fracture, arthritis, septic arthritis, bursitis, cellulitis, muscle spasm, nerve compression, DVT, arterial occlusion, herpes zoster, electrolyte abnormality, tumor.... This is not meant to be in all inclusive list EKG interpreted by me (3pts min.). @ -None X-rays interpreted by me (1pt min.). @ -None done CT interpreted by me (1pt min.). @ -None done U/S interpreted by me (1pt. min.). @ -Ultrasound venous Doppler left lower extremity negative for acute DVT. Femoral vein not able to be visualized due to body habitus. What testing was considered but not performed or refused? (CT, X-rays, U/S, labs)? Why? @ -None What meds were considered but not given or refused? Why? @ -None Did you discuss the management of the patient with other professionals (pr ofessionals i.e. , PA, ELEMENTARY EDUCATION TUTOR, lab, RT, psych nurse, forensic social worker, supervisor type bar and segment, teacher, chief security officer, piano case and bench assembler)? Give summary @ -Yes, case discussed with case management who reestablished home care. Was smoking cessation discussed for >3mins.? @ -No Was critical care preformed (if so, how long)? @ -No Were there social determinants of health that impacted care today? How? (Homelessness, low income, unemployed, alcoholism, drug addiction, transportation, low edu. Level, literacy, decrease access to med. care, shelter, rehab)? @ -No Was there de-escalation of care discussed even if they declined (Discuss DNR or withdrawal of care, Hospice)? DNR status @ -No What co-morbidities impacted this encounter? (DM, HTN, Smoking, COPD, CAD, Cancer, CVA, ARF, Chemo, Hep., AIDS, mental health diagnosis, sleep apnea, morbid obesity)? @ -Obese/recent TKA Was patient admitted / discharged? Hospital course, mention meds given and route, prescriptions, significant lab abnormalities, going to OR and other pertinent info. @ -Discharge. 68 year old female presenting to the ER via EMS with a chief complaint of left knee pain. Patient is 3 days s/p TKA by Dr. Rivero. History and physical exam completed. Vitals stable. Patient in no signs of acute distress and resting comfortably in exam room. Left lower extremity neurovascular intact. There is edema and bruising to left knee. Vertical johansen rgical incision over anterior aspect of left knee. No surrounding erythema or purulent drainage present. Due to recent surgery and patients mobility, venous Doppler ultrasound of left lower extremity ordered to rule out DVT. Ultrasound negative for acute DVT. This examination is suboptimal as femoral vein unable to be visualized due to patient's body habitus. Case discussed with case management who reviewed patient's chart and reset up home care. Ultrasound results discussed with patient, all questions answered. Advised close follow-up with Dr. Rivero as scheduled. I also encourage patient to participate in physical therapy and home care. Return parameters discussed. Patient discharged in stable condition. Patient verbally expressed understanding and agreement with care plan. Case discussed with ED attending, Dr. Pop. Undiagnosed new problem with uncertain prognosis? @ -No Drug Therapy requiring intensive monitoring for toxicity (Heparin, Nitro, Insulin, Cardizem)? @ -No Were any procedures done? @ -No Diagnosis/symptom? @ -Wound check Acute, or Chronic, or Acute on Chronic? @ -Acute Uncomplicated (without systemic symptoms) or Complicated (systemic symptoms)? @ -Uncomplicated Side effects of treatment? @ -No Exacerbation, Progression, or Severe Exacerbation? @ -No Poses a threat to life or bodily function? How? (Chest pain, [place], [place], pneumonia, PE, COPD, DKA, ARF, appy, cholecystitis, CVA, Diverticulitis, Homicidal, Suicidal, threat to staff... and all critical care pts) @ -No - Radiology Data Radiology results: report reviewed, image reviewed Disposition Clinical Impression: Status post total left knee replacement, Visit for wound check Disposition: HOME SELF-CARE Condition: Stable Instructions (If sedation given, give patient instructions): Precautions after Total Joint Replacement Surgery (ED) Additional Instructions: Continue with home care and outpatient physical therapy. Follow-up with Dr. Rivero as scheduled. Return to the ER for any new or worsening concerns. Is patient prescribed a controlled substance at d/c from ED?: No Referrals: Mike Almanzar III, MD [Primary Care Provider] - 1-2 days [facility] [NON-STAFF] - 09/23/23 [facility],Equipment [NON-STAFF] - As Soon As Possible (Contact for delievery of [facility] machine.) Charan Rivero DO [Doctor of Osteopathic Medicine] - 1-2 days Time of Disposition: 13:08
--- NOTE | 2023-09-22 13:00 | US ---
EXAMINATION TYPE: US venous doppler duplex LE LT DATE OF EXAM: 09/22/2023 12:23 PM COMPARISON: NONE CLINICAL INDICATION: Female, 68 years old with history of pain; Left total knee 4 day ago, swelling a nd pain, no h/o dvt SIDE PERFORMED: Left TECHNIQUE: The lower extremity deep venous system is examined utilizing real time linear array sonog magy with graded compression, doppler sonography and color-flow sonography. VESSELS IMAGED: Common Femoral Vein Deep Femoral Vein Greater Saphenous Vein * Femoral Vein Popliteal Vein Small Saphenous Vein * Proximal Calf Veins (* superficial vessels) Left Leg: Unable to visualize left CFV due to habitus, otherwise all other veins appears negative . Subcutaneous edema. IMPRESSION: Limited exam as the common femoral vein could not be identified. Remaining venous structu res demonstrate no diagnostic evidence of DVT.
[2023-09-22 14:01] VITALS: BP 146/62; PULSE 92; RESP 18; TEMP 98.8
== END 2023-09-22 14:00 | disposition home or self-care (01) ==
LOC: EC 10:39
DX: M96.840 Postprocedural hematoma of a musculoskeletal structure following a musculoskeletal system procedure (principal); E66.9 Obesity, unspecified; Z88.0 Allergy status to penicillin; Z91.018 Allergy to other foods; Z87.891 Personal history of nicotine dependence; Z68.43 Body mass index [BMI] 50.0-59.9, adult; Z96.652 Presence of left artificial knee joint
CPT/HCPCS: 99284

== ENCOUNTER → 2023-11-23 | Outpatient (CLI) | payer MEDICARE | LOC: LABWHC1 09:23 | PROVIDERS: ATTEND Orthopaedic Surgery Hand Surgery | DX: Z01.812 Encounter for preprocedural laboratory examination (principal) | CPT/HCPCS: 87070 ==

== ENCOUNTER 2023-12-20 07:38 | Observation (INO) | payer MEDICARE ==
[2023-12-14 11:09] VITALS: BMI 52.0
[~2023-12-20 07:38] MED LIST changes: +LIDOCAINE 1% (10MG/ML) FOR IV START INTRADERMA PRN
[2023-12-20] MEDS: MELOXICAM 7.5 MG TAB PO PRN (08:14)
[2023-12-20] MEDS: GABAPENTIN 300 MG CAP PO PRN (08:14)
[2023-12-20] MEDS: ONDANSETRON 4 MG/2 ML VIAL IVP ONE (08:30)
[2023-12-20] MEDS: LACTATED RINGERS 1,000 ML IV SCH (08:30)
[2023-12-20] MEDS: DEXAMETHASONE SOD PHOSPHATE 4 MG/ML 1 ML VIAL IVP STA (08:31)
[2023-12-20] MEDS: MIDAZOLAM 2 MG/2 ML VIAL IV ONE (08:34)
[2023-12-20] MEDS: fentaNYL (PF) 50 MCG/ML 2 ML AMP IVP ONE (08:35)
[2023-12-20] MEDS: IV FLUID CONTINUATION 1,000 ML IV ONE (08:38)
[2023-12-20] MEDS ORDERED: PROPOFOL 10 MG/ML 20 ML VIAL IV ONE (09:02)
[2023-12-20] MEDS ORDERED: GLYCOPYRROLATE 0.2 MG/ML 2 ML VIAL ONE (09:02)
[2023-12-20] MEDS ORDERED: NEOSTIGMINE 1 MG/ML 10 ML VIAL ONE (09:02)
[2023-12-20] MEDS ORDERED: SODIUM CHLORIDE 0.9% (PF) 10 ML VIAL ONE (09:02)
[2023-12-20] MEDS ORDERED: PHENYLEPHRINE 10 MG/ML VIAL ONE (09:02)
[2023-12-20] MEDS ORDERED: SUCCINYLCHOLINE CHLORIDE 200 MG/10 ML VIAL IV ONE (09:02)
[2023-12-20] MEDS ORDERED: MIDAZOLAM 2 MG/2 ML VIAL ONE (09:02)
[2023-12-20] MEDS ORDERED: ROCURONIUM 10 MG/ML (5 ML VIAL) IV ONE (09:02)
[2023-12-20] MEDS ORDERED: HYDROmorphone (PF) 1 MG/ML ONE (09:02)
[2023-12-20] MEDS ORDERED: fentaNYL (PF) 50 MCG/ML 2 ML AMP ONE (09:02)
[2023-12-20] MEDS ORDERED: ROPIVACAINE 5 MG/ML 30 ML VIAL ONE (09:02)
[2023-12-20] MEDS ORDERED: LIDOCAINE 1% INJ 10MG/ML (20 ML MDV) ONE (09:02)
[2023-12-20] MEDS ORDERED: TRANEXAMIC 1,000 MG/100ML-NACL PREMIX BAG ONE (09:02)
[2023-12-20] MEDS: ceFAZolin 3 GM in SODIUM CHLORIDE 0.9% 100 ML IVPB PRN (09:05)
[2023-12-20] MEDS: ceFAZolin 1,000 MG in SODIUM CHLORIDE 0.9% 1,000 ML IRRIGATION ONE (09:05)
[2023-12-20] MEDS: LACTATED RINGERS 1,000 ML IV ONE (10:30)
--- NOTE | 2023-12-20 10:52 | P.OP ---
Date of Procedure: 12/20/23 Preoperative Diagnosis: Severe osteoarthritis right knee Postoperative Diagnosis: Severe osteoarthritis right knee Procedure(s) Performed: Right total knee arthroplasty Implants: [employer]in [employer] Nephew Journey II Oxinium Bi-cruciate stabilized femoral component size 6, right [employer] Journey nonporous tibial baseplate size 5, right [employer] Journey II, Constrained articular insert, size 11 mm, Size 5-6, right [employer] Journey Kandy II resurfacing patellar component, oval, 32 mm All components were cemented using Palacos R bone cement The articulation is Oxinium on polyethylene Anesthesia: GETA Surgeon: Charan Rivero Boat Loader #1: Esperanza Santiago Estimated Blood Loss (ml): 150 Pathology: none sent Condition: stable Disposition: PACU Indications for Procedure: The patient's knee is end-stage, and conservative management has failed. The operation of knee replacement has been discussed at length in the office, as well as potential risks and complications. These are inclusive of, but not bertrand ited to: Infection, bleeding, scarring, discomfort, stiffness, blood vessel and nerve damage, need for further surgery, failure to relieve symptoms, persistence, recurrence, or worsening of problems, loosening, dislocation, wear, blood clot, pulmonary embolism, , gait dysfunction, stiffness, and other risks as discussed in the office. Patient elects to proceed and the consent form has been signed. Operative Findings: The operative findings are consistent with severe osteoarthritis of the right knee Description of Procedure: The patient was seen in the preoperative area, the consent was reviewed and the operative site was marked with a skin marker. The patient verified the procedure and the operative site. An adductor canal pain catheter and an iPACK block were placed by anesthesia in the preoperative area. The patient was then brought to the operating room and positioned on the operating room table in the supine position. Preoperative antibiotics and a gram of tranexamic acid were given intravenously. A spinal anesthetic was administered by the anesthesia department. Care was taken to make sure that all pressure points were adequately padded. A tourniquet was placed on the upper thigh and the lower extremity was prepped with ChloraPrep and draped in usual sterile fashion. A universal time-out was then performed which confirmed the patient's name, surgical site, ALLERGIES, and consent. A standard anterior midline approach to the knee was performed. The skin and subcutaneous tissue were sharply dissected down to the patellar tendon. A medial parapatellar arthrotomy was then performed. The knee was then extended, the patellar was everted, and the knee was flexed. The infra-patellar fat pad was removed in order to enhance exposure. The anterior horns of both menisci were excised, and a release was performed to the posterior medial aspect of the knee. On gross visual inspection, there was complete loss of articular cartilage in the medial and patellofemoral joint spaces. There was also significant cartilage damage in the lateral compartment. There were multiple periarticular osteophytes globally about the knee which were then removed with a Ronguer. The femoral canal was then opened with the 9.5 mm intramedullary drill. The 8 mm intramedullary nathaniel was then inserted into the femoral canal with the distal femoral cutting guide set for 5 of valgus. The distal femoral cutting block was then pinned in place. The intramedullary nathaniel was then removed, and the distal femur was then cut. The cutting block was then removed and the cut was checked for symmetry. The resected bone was then measured to confirm the appropriate distal femoral resection. Next, the sizing guide was t hen placed and set for 3 external rotation based off of the epicondylar axis and Schoolcraft's line. Pins were then placed and the drill holes, and the femur was sized with the sizing stylus. The pins were then removed, and the sizing guide was then removed. The spikes of the appropriate size femoral block was then placed into the predrilled holes, and malleted into place. Two 45 mm pins were then placed into the fixation holes on the cutting block. An tito wing was then used to ensure there would be no notching with the anterior cut. The anterior condyles were cut without notching. The anterior chord cut was then performed, followed by the posterior cut, posterior chamfer cut, and the anterior chamfer cut. The collateral ligaments were protected during the entire process. The cutting block was then removed. Any remaining bone and osteophytes were removed from the femur with a Ronguer. Attention was then directed to the tibia. The remaining ACL was removed with a Ronguer, and the tibia was then gently subluxed forward with a large bent knee retractor. Any remaining menisci were excised. The posterior lateral corner was cauterized in order to coagulate the lateral geniculate artery. The extra medullary tibial cutting guide was then placed, set for the appropriate rotation, slope, and depth of resection. The proximal tibia cutting guide was then pinned in place. Proximal tibia was then cut and sized. A curved osteotome was then used to remove any posterior osteophytes from the distal femur. The femoral trial was placed. The box cutting guide was then used to remove the intracondylar femoral bone. The box trial was then placed. The tibial trial was placed with the appropriate-sized insert. The knee was able to fully extend and flex to 130 and was stable throughout all range of motion. The knee was then extended and the patella was everted. Patella was then measured, and then using an osteotomy guide, the patella was cut at the appropriate level. The patellar component was sized. The patellar drill guide was placed and the patella was drilled. The patella trial was then placed. The knee was then taken through range of motion with the patella trial and the patella tracked normally using the no thumbs technique. The patella trial was then removed. The knee was then flexed and lug holes were drilled through the femoral trial and the femoral trial was then removed. The tibial was then re-exposed, and the tibial broach guide was then pinned in place after it was set for the appropriate rotation to allow for the most coverage without overhang. The tibia was then reamed and broached. The femoral canal was plugged with autologous bone. The cut surfaces of bone were then irrigated with pulsatile lavage. The knee was also irrigated with Irrisept solution. The components were then opened, the cement was mixed. Cement was placed on the backside of the femoral, tibial, and patellar components. Cement was then applied to the tibial surface and pressurized into the surface using finger pressurization technique. The tibial component was then applied and excess cement was removed after it was impacted securely noted to be flush with the cut surface. In similar fashion, the cement was applied to the cut femoral surface, pressurized and using finger pressurization the component was impacted in place. Excess cement was removed. The polyethylene spacer was then implanted and locked into position. Patellar component was then applied in a similar technique and the patellar clamp was used to hold patella in place while the cement hardened. The knee was held in full extension while the cement hardened. Once the cement had fully hardened, the knee was reinspected. Any other cement extrusion was removed the final range of motion testing showed range of motion from 0-130 with excellent stability, both medial and laterally and appropriate alignment of the leg. Patella tracked normally. After the cemented hardened, the tourniquet was released and hemostasis was obtained. A second gram of transexamic acid was given intravenously. The knee was again irrigated. The knee was again taken through range of motion and found to be stable throughout all range of motion of 0-130, and the patella tracked normally. The fascia was then closed with 0 Vicryl followed by #2 strata fix suture. The subcutaneous tissue was closed with 3-0 Vicryl and 3-0 strata fix. Exofin glue was used for the skin and placed with the knee in flexion. After the glue had dried, and Optafoam silver impregnated dressing was applied. A lightly compressive dressing was applied using web roll and Golden wrap. Patient was then transferred to the stretcher and taken to recovery room in stable condition. Sponge and needle counts were correct. The blood donor unit assistant EUNICE Rojas was required due the complexity surgery and the need for a skilled surgical resident. She assisted in positioning, draping, retraction, and closure of the wound.
[2023-12-20] MEDS: HYDROmorphone 0.5 MG/0.5 ML SYRINGE IVP PRN (11:25)
[2023-12-20] MEDS ORDERED: bisacodyL 10 MG SUPP RECTAL PRN (11:28)
[2023-12-20] MEDS ORDERED: ONDANSETRON 4 MG/2 ML VIAL IVP PRN (11:28)
[2023-12-20] MEDS ORDERED: HYDROmorphone 0.5 MG/0.5 ML SYRINGE IVP PRN ×2 (11:28)
[2023-12-20] MEDS ORDERED: NALOXONE 0.4 MG/ML 1 ML VIAL IV PRN (11:28)
[2023-12-20] MEDS ORDERED: MAGNESIUM HYDROXIDE 2,400 MG/30 ML CUP PO PRN (11:28)
[2023-12-20] MEDS ORDERED: NA PHOS,M-B/NA PHOS,DI-BA 133 ML ENEMA RECTAL PRN (11:28)
--- NOTE | 2023-12-20 11:41 | P.ANPRN ---
Procedure Note - Anesthesia - Nerve Block Performed Right Adductor Canal Infusion Time Out Performed: Yes (0831) Date of Procedure: 12/20/23 Procedure Start Time: 08:32 Procedure Stop Time: 08:37 Indication: Acute Post-Operative Pain, Requested by Surgeon (dionicio) Specifically requested for management of pain by DrBernie: Charan Rivero Sedation Type: Sedate with meaningful contact maintained Preparation: Sterile Prep, Sterile Dressing Position: Supine Catheter Depth at Skin (cm): 10 Catheter: Indwelling Needle Types: Pajunk Needle Gauge: 18 Ultrasound used to visualize needle placement: Yes Ultrasound used to observe medication spread: Yes Injectate: 0.5% Ropivacaine (see comment for volume) (15cc+10cc nacl pf) Blood Aspirated: No Pain Paresthesia on Injection Noted: No Resistance on Injection: Normal Image Stored and Saved: Yes Events: Uneventful and Well Tolerated
--- NOTE | 2023-12-20 11:43 | P.ANPRN ---
Procedure Note - Anesthesia - Nerve Block Performed Right iPack Single Time Out Performed: Yes (0831) Date of Procedure: 12/20/23 Procedure Start Time: 08:38 Procedure Stop Time: 08:41 Location of Patient: PreOp Indication: Acute Post-Operative Pain, Requested by Surgeon Specifically requested for management of pain by DrBernie: Charan Rivero Sedation Type: Sedate with meaningful contact maintained Preparation: Sterile Prep Position: Supine Catheter: None Needle Types: Pajunk Needle Gauge: 21 Ultrasound used to visualize needle placement: Yes Ultrasound used to observe medication spread: Yes Injectate: 0.5% Ropivacaine (see comment for volume) (15cc+10cc nacl pf) Blood Aspirated: No Pain Paresthesia on Injection Noted: No Resistance on Injection: Normal Image Stored and Saved: Yes Events: Uneventful and Well Tolerated
[2023-12-20] MEDS: ROPIVACAINE 1,100 MG, SODIUM CHLORIDE 0.9% 500 ML 330 ML, EMPTY PAIN BALL 1 EACH MISCELLANE PRN (11:45)
--- NOTE | 2023-12-20 13:10 | XR ---
EXAMINATION TYPE: XR knee limited RT DATE OF EXAM: 12/20/2023 12:47 PM CLINICAL INDICATION: Female, 68 years old with history of Evaluation for Postop abnormality and align ment; [facility] COMPARISON: None. TECHNIQUE: XR knee limited RT; examined in Frontal, lateral projections. FINDINGS: Status post total knee arthroplasty changes with hardware in appropriate alignment and in tact. No evidence of fracture. Subcutaneous lucencies and lucencies within the joint consistent with surgical changes. IMPRESSION: Status post total knee arthroplasty changes with hardware intact and appropriate alignment. No fractu res identified.
[2023-12-20] MEDS: SODIUM CHLORIDE 0.9% 1,000 ML IV SCH (14:24)
[2023-12-20] MEDS: ceFAZolin 3 GM in SODIUM CHLORIDE 0.9% 100 ML IVPB SCH (16:21)
[2023-12-20] MEDS: HYDROcodone/APAP 7.5-325MG 1 EACH TAB PO PRN (17:27)
--- NOTE | 2023-12-20 18:19 | P.CONS ---
History of Present Illness - Reason for Consult Consult date: 12/20/23 - Chief Complaint medical management - History of Present Illness 68-year-old woman with medical history of obesity class III, hypertension, hypothyroidism,presented for evaluation of elective total knee surgery. Medicine was consulted for medical management. Patient has no additional complaints at this time. She was seen today resting in bed eating a meal, pain is well-controlled. She denies fevers, chills, nausea, vomiting. She is passing flatus but has not yet had a bowel movement. Upon evaluation, patient was afebrile, 144/64, heart rate 78, 97% on 2 L nasal cannula. There are no labs to review. Knee x-ray shows intact hardware in appropriate alignment without fractures. All Systems reviewed and pertinent positives and negatives noted in HPI, all other symptoms are negative Gen: In NAD, non-toxic HEENT: normocephalic, atraumatic, hearing acuity is intant, mucous membranes moist CVS: perfusing all extremities well, no pitting edema, Respiratory: symmetric chest expansion, no accessory muscle use, GI: soft, NTTP, ND, : no suprapubic tenderness, no CVA tenderness MSK/Derm: no rashes, cyanosis Neuro: CN II-XII intact, no motor weakness, Psych: cooperative, euthymic mood, judgment and insight is intact Labs and imaging as above Assessment/plan: Hypertension Hypothyroidism -Resume home medications -Obtain basic metabolic panel tomorrow morning -Obtain magnesium tomorrow morning Status post total knee arthroplasty -DVT prophylaxis and pain control per primary team Past Medical History Past Medical History: Hearing Disorder / Deafness, Hypertension, Osteoarthritis (OA), Thyroid Disorder Additional Past Medical History / Comment(s): Back pain, tinnitus. History of Any Multi-Drug Resistant Organisms: None Reported Past Surgical History: Cholecystectomy, Joint Replacement Additional Past Surgical History / Comment(s): Right hip replacement, left knee replacement. Past Anesthesia/Blood Transfusion Reactions: No Reported Reaction Additional Past Anesthesia/Blood Transfusion Reaction / Comm: No blood transfusion hx. Past Psychological History: Depression Smoking Status: Former smoker Past Alcohol Use History: Occasional Additional Past Alcohol Use History / Comment(s): Quit smoking 20+ years ago. Past Drug Use History: Marijuana Additional Drug Use History / Comment(s): No Marijuana use since 08/2023. Aware to hold for 24 hours prior to procedure. - Past Family History Sister(s) Family Medical History: Cancer, Deep Vein Thrombosis (DVT) Additional Family Medical History / Comment(s): Brain cancer. Medications and Allergies Home Medications Medication Instructions Recorded Confirmed Type DULoxetine HCL [Cymbalta] 90 mg PO HS 09/13/23 12/14/23 History Essential One 1 tab PO DAILY 09/13/23 12/14/23 History Fluticasone Propionate [Flonase 1 spray EA NOSTRIL DAILY PRN 09/13/23 12/14/23 History Allergy Relief] L.acidoph,Paracasei, B.lactis 1 cap PO DAILY 09/13/23 12/14/23 History [Probiotic] Levothyroxine Sodium [Levoxyl] 200 mcg PO MOTUWETHFR 09/13/23 12/14/23 History lisinopriL [Zestril] 20 mg PO QAM 09/13/23 12/14/23 History Calcium Carbonate [Calcium] 600 mg PO DAILY 09/22/23 12/14/23 History Cholecalciferol [Vitamin D3 (25 75 mcg PO DAILY 09/22/23 12/14/23 History Mcg = 1000 Iu)] Mindi 500 mg PO DAILY 09/22/23 12/14/23 History Levothyroxine Sodium [Levoxyl] 100 mcg PO SUSA 09/22/23 12/14/23 History Melatonin 5 mg PO HS 09/22/23 12/14/23 History Turmeric Root Extract [Turmeric] 500 mg PO DAILY 09/22/23 12/14/23 History Ubidecarenone [Co Q-10] 600 mg PO DAILY 09/22/23 12/14/23 History Vitamin C/Biotin [Hair, Skin and 1 tab PO DAILY 09/22/23 12/14/23 History Nails Chew] Acetaminophen [Tylenol Arthritis] 650 mg PO QID 12/14/23 12/14/23 History Etodolac [Lodine] 200 mg PO BID 12/14/23 12/14/23 History Lansoprazole 15 mg PO QAM 12/14/23 12/14/23 History amLODIPine [Norvasc] 5 mg PO QAM 12/14/23 12/14/23 History Aspirin 325 mg PO BID #60 tab 12/20/23 Rx HYDROcodone/APAP 7.5-325MG [[place] 1 - 2 tab PO Q6H PRN #32 tab 12/20/23 Rx 7.5-325] Sennosides [Senokot] 2 tab PO DAILY PRN #60 tablet 12/20/23 Rx Allergies Allergy/AdvReac Type Severity Reaction Status Date / Time almond Allergy Anaphylaxis Verified 12/20/23 07:58 latex Allergy Red Skin Verified 12/20/23 07:58 Penicillins Allergy Rash/Hives Verified 12/20/23 07:58 cherries Allergy Anaphylaxis Uncoded 12/20/23 07:58 peaches Allergy Anaphylaxis Uncoded 12/20/23 07:58 Physical Exam Osteopathic Statement: *. No significant issues noted on an osteopathic structural exam other than those noted in the History and Physical/Consult. Vitals: Vital Signs Temp Pulse Pulse Resp BP Pulse Ox 12/20/23 14:11 97.8 F 78 16 144/64 97 12/20/23 14:05 98.4 F 86 16 113/65 96 12/20/23 13:30 81 18 144/64 99 12/20/23 13:00 68 20 148/62 100 12/20/23 12:30 72 20 163/74 100 12/20/23 12:15 62 20 164/74 100 12/20/23 12:00 78 20 175/77 100 12/20/23 11:45 81 20 175/75 100 12/20/23 11:30 87 20 165/72 100 12/20/23 11:18 97 F L 92 20 169/75 98 12/20/23 08:52 88 15 144/61 98 12/20/23 08:17 97.5 F L 91 18 186/91 97 Intake and Output 12/20/23 12/20/23 12/20/23 06:59 14:59 22:59 Intake Total 1401 Output Total 150 Balance 1251 Intake: IV 1401 Output: Estimated Blood Loss 150 Other: Weight 145.4 kg
[2023-12-20] MEDS: ASPIRIN 325 MG TAB PO SCH (21:29)
[2023-12-20] MEDS: DULoxetine HCL 30 MG CAPSULE.DR PO SCH (21:29)
[2023-12-20] MEDS: SENNOSIDES-DOCUSATE SODIUM 1 EACH TAB PO SCH (21:29)
[2023-12-20] MEDS: MELATONIN 5 MG TABLET PO SCH (21:30)
[2023-12-21] MEDS: HYDROcodone/APAP 7.5-325MG 1 EACH TAB PO PRN (05:42)
[2023-12-21] MEDS: LEVOTHYROXINE 100 MCG TAB PO SCH (07:35)
--- NOTE | 2023-12-21 09:19 | P.PN ---
Progress Note - Text 12/21/23 624am 68-year-old female status post total knee replacement. Patient has an On-Q pump for postop pain control with a solution running at 8 cc an hour with a VAS of 2 at rest. Dressing clean dry and intact. Plan to continue On-Q pump infusion
[2023-12-21 10:39] LABS: Basophils # (A) 0.03 X 10*3/uL (0.00-0.10); Basophils % (A) 0.5 %; Eosinophils # (A) 0.02 X 10*3/uL (0.04-0.35); Eosinophils % (A) 0.3 %; HCT 29.4 % (37.2-46.3); HGB 9.3 g/dL (12.0-15.0); Lymphocytes # (A) 0.82 X 10*3/uL (0.90-5.00); Lymphocytes % (A) 14.3 %; MCH 29.5 pg (27.0-32.0); MCHC 31.6 g/dL (32.0-37.0); MCV 93.3 FL (80.0-97.0); Mean Platelet Volume 10.5 FL (9.5-12.2); Monocytes # (A) 0.91 X 10*3/uL (0.20-1.00); Monocytes % (A) 15.9 %; NRBC Per 100 WBC 0 X 10*3/uL (0.00-0.01); Neutrophils # (A) 3.93 X 10*3/uL (1.80-7.70); Neutrophils % (A) 68.7 %; Platelet Count 187 X 10*3/uL (140-440); RBC 3.15 X 10*6/uL (4.10-5.20); RDW 14.6 % (11.5-14.5); WBC 5.73 X 10*3/uL (4.50-10.00)
[2023-12-21] MEDS: PANTOPRAZOLE 40 MG TABLET PO SCH (10:42)
[2023-12-21] MEDS: amLODIPine 5 MG TAB PO SCH (10:42)
[2023-12-21] MEDS: lisinopriL 20 MG TAB PO SCH (10:42)
[2023-12-21 10:47] LABS: Blood Urea Nitrogen 14.6 mg/dL (9.0-27.0); Calcium 8.6 mg/dL (8.7-10.3); Carbon Dioxide 23.4 mmol/L (21.6-31.8); Chloride 106 mmol/L (96-109); Glucose 125 mg/dL (70-110); Magnesium 1.8 mg/dL (1.5-2.4); Potassium 3.8 mmol/L (3.5-5.5); Sodium 139 mmol/L (135-145)
--- NOTE | 2023-12-21 11:17 | P.PN ---
Subjective Progress Note Date: 12/21/23 This is a 68-year-old female who is status post right total knee arthroplasty. This is postoperative day #1 and patient is seen and evaluated at bedside today. Patient states that her pain is well-controlled, but she required assistance when getting out of bed and for transfers. Patient denies any new complaints today. Objective - Vital Signs Vital signs: Vital Signs Temp 98.7 F 12/21/23 07:18 Pulse 103 H 12/21/23 07:18 Resp 17 12/21/23 07:18 BP 133/69 12/21/23 07:18 Pulse Ox 99 12/21/23 07:18 FiO2 Intake & Output 12/20/23 12/21/23 12/21/23 18:59 06:59 18:59 Intake Total 1401 Output Total 150 Balance 1251 Weight 145.4 kg Intake: IV 1401 Output: Estimated Blood Loss 150 Other: # Voids 0 2 # Bowel Movements 0 - Exam Vital signs are stable. Patient is in no acute distress and is alert and oriented 3. Calf is soft and nontender to palpation. Dressing is clean, dry, and intact. Patient has full foot and ankle motion without pain or difficulty. Sensation intact. Neurovascular status and circulatory status are intact. - Labs CBC & Chem 7: 12/21/23 06:37 12/21/23 06:37 Labs: Abnormal Lab Results - Last 24 Hours (Table) 12/21/23 12/21/23 Range/Units 06:37 06:37 RBC 3.15 L (4.10-5.20) X 10*6/uL Hgb 9.3 L (12.0-15.0) g/dL Hct 29.4 L (37.2-46.3) % MCHC 31.6 L (32.0-37.0) g/dL RDW 14.6 H (11.5-14.5) % Lymphocytes # 0.82 L (0.90-5.00) X 10*3/uL Eosinophils # 0.02 L (0.04-0.35) X 10*3/uL Glucose 125 H (70-110) mg/dL Calcium 8.6 L (8.7-10.3) mg/dL Assessment and Plan (1) Osteoarthritis of right knee Current Visit: Yes Status: Acute Code(s): M17.11 - UNILATERAL PRIMARY OSTEOARTHRITIS, RIGHT KNEE SNOMED Code(s): 250978277963244 (2) Status post total right knee replacement Current Visit: Yes Status: Acute Code(s): Z96.651 - PRESENCE OF RIGHT ARTIFICIAL KNEE JOINT SNOMED Code(s): 5663034676187 Plan: #1 Continue with routine postoperative care and pain control, leave dressing in place for 7 days. #2 Anticoagulation with aspirin. #3 Physical therapy today. #4 Appreciate input from internal medicine. #5 Anticipate discharge home with home care or to ECF in the next 24-48 hours.
--- NOTE | 2023-12-21 11:44 | P.PN ---
Subjective Progress Note Date: 12/21/23 Principal diagnosis: TKA States that the rt knee feeling better. She is able to walk on it with help. Pain is controlled. Objective - Vital Signs Vital signs: Vital Signs Temp 98.7 F 12/21/23 07:18 Pulse 103 H 12/21/23 07:18 Resp 17 12/21/23 07:18 BP 133/69 12/21/23 07:18 Pulse Ox 99 12/21/23 07:18 FiO2 Intake & Output 12/20/23 12/21/23 12/21/23 18:59 06:59 18:59 Intake Total 1401 Output Total 150 Balance 1251 Weight 145.4 kg Intake: IV 1401 Output: Estimated Blood Loss 150 Other: # Voids 0 2 # Bowel Movements 0 - Exam Constitutional: No acute distress, conversant, pleasant Eyes:Anicteric sclerae, moist conjunctiva, no lid-lag, PERRLA, ENMT: Oropharynx clear, no erythema, exudates Neck: Supple, FROM, no masses, or JVD, No carotid bruits, No thyromegaly Lungs: Clear to auscultation, Clear to percussion, Normal respiratory effort, no accessory muscle use Cardiovascular: Heart regular in rate and rhythm, No murmurs, gallops, or rubs, No peripheral edema Abdominal: Soft, Nontender, no guarding, rebound or rigidity, Normoactive bowel sounds, No hepatomegaly, No splenomegaly, No palpable mass Skin: Normal temperature, tone, texture, turgor, no induration, No subcutaneous nodules, No rash, lesions, No ulcers Extremities: No digital cyanosis, No clubbing, Pedal pulses intact and symmetrical, Radial pulses intact and symmetrical, No calf tenderness Psychiatric: Alert and oriented to person, place and time, appropriate affect, intact judgement Neuro: Muscles Strength 5/5 in all 4 extremities, Sensation to light touch grossly present throughout, Cranial nerves II-XII grossly intact, no focal sensory deficits Assessment and Plan Plan: Hypertension Hypothyroidism -Resume home medications -Obtain basic metabolic panel tomorrow morning -Obtain magnesium tomorrow morning Status post total knee arthroplasty -DVT prophylaxis and pain control per primary team
[2023-12-21] MEDS: HYDROmorphone 0.5 MG/0.5 ML SYRINGE IVP PRN (20:21)
[2023-12-22 08:37] VITALS: BP 95/55; PULSE 92; TEMP 98.7
--- NOTE | 2023-12-22 09:20 | P.DS ---
Providers Date of admission: 12/20/23 12:18 Expected date of discharge: 12/22/23 Attending physician: Charan Rivero Consults: 12/20/23 11:28 Consult Physician Routine Consulting Provider: Юлия Harvey Consult Reason/Comments: medical management Do you want consulting provider notified?: Yes Primary care physician: Mike Almanzar - Discharge Diagnosis(es) (1) Osteoarthritis of right knee Current Visit: Yes Status: Acute (2) Status post total right knee replacement Current Visit: Yes Status: Acute Hospital Course: This is a 68-year-old female with known history of degenerative arthritis of the right knee. The patient presents for evaluation. After discussion and consideration patient elects to proceed with total knee arthroplasty. The patient is seen preoperatively by Dr. Rivero and cleared for surgery. Patient is admitted to [facility] on 12/20/2023 for total knee arthroplasty. The procedures performed without complication or sequelae. The patient is doing well postoperatively. Labs and vital signs are stable on day of discharge. On day of discharge patient's knee incision is healing well. There is minimal erythema. There is no drainage noted at this time. There is minimal soft tissue swelling to the hip and thigh. Patient has full foot and ankle motion without difficulty or pain. Neurovascular status to the right lower extremity is intact. Patient is discharged to rehab in good condition. Please see med rec for accurate list of home medications. Plan - Discharge Summary Discharge Rx Participant: Yes New Discharge Prescriptions: New Aspirin 325 mg PO BID #60 tab Sennosides [Senokot] 2 tab PO DAILY PRN #60 tablet PRN Reason: Constipation HYDROcodone/APAP 7.5-325MG [Ector 7.5-325] 1 - 2 tab PO Q6H PRN #32 tab PRN Reason: Pain No Action L.acidoph,Paracasei, B.lactis [Probiotic] 1 cap PO DAILY Fluticasone Propionate [Flonase Allergy Relief] 1 spray EA NOSTRIL DAILY PRN PRN Reason: Allergy Symptoms Essential One 1 tab PO DAILY Melatonin 5 mg PO HS Levothyroxine Sodium [Levoxyl] 100 mcg PO SUSA Vitamin C/Biotin [Hair, Skin and Nails Chew] 1 tab PO DAILY Mindi 500 mg PO DAILY Ubidecarenone [Co Q-10] 600 mg PO DAILY Calcium Carbonate [Calcium] 600 mg PO DAILY Etodolac [Lodine] 200 mg PO BID amLODIPine [Norvasc] 5 mg PO QAM Acetaminophen [Tylenol Arthritis] 650 mg PO QID DULoxetine HCL [Cymbalta] 90 mg PO HS lisinopriL [Zestril] 20 mg PO QAM Levothyroxine Sodium [Levoxyl] 200 mcg PO MOTUWETHFR Cholecalciferol [Vitamin D3 (25 Mcg = 1000 Iu)] 75 mcg PO DAILY Turmeric Root Extract [Turmeric] 500 mg PO DAILY Lansoprazole 15 mg PO QAM Discharge Medication List DULoxetine HCL [Cymbalta] 90 mg PO HS 09/13/23 [History] Essential One 1 tab PO DAILY 09/13/23 [History] Fluticasone Propionate [Flonase Allergy Relief] 1 spray EA NOSTRIL DAILY PRN 09/13/23 [History] L.acidoph,Paracasei, B.lactis [Probiotic] 1 cap PO DAILY 09/13/23 [History] Levothyroxine Sodium [Levoxyl] 200 mcg PO MOTUWETHFR 09/13/23 [History] lisinopriL [Zestril] 20 mg PO QAM 09/13/23 [History] Calcium Carbonate [Calcium] 600 mg PO DAILY 09/22/23 [History] Cholecalciferol [Vitamin D3 (25 Mcg = 1000 Iu)] 75 mcg PO DAILY 09/22/23 [History] Mindi 500 mg PO DAILY 09/22/23 [History] Levothyroxine Sodium [Levoxyl] 100 mcg PO SUSA 09/22/23 [History] Melatonin 5 mg PO HS 09/22/23 [History] Turmeric Root Extract [Turmeric] 500 mg PO DAILY 09/22/23 [History] Ubidecarenone [Co Q-10] 600 mg PO DAILY 09/22/23 [History] Vitamin C/Biotin [Hair, Skin and Nails Chew] 1 tab PO DAILY 09/22/23 [History] Acetaminophen [Tylenol Arthritis] 650 mg PO QID 12/14/23 [History] Etodolac [Lodine] 200 mg PO BID 12/14/23 [History] Lansoprazole 15 mg PO QAM 12/14/23 [History] amLODIPine [Norvasc] 5 mg PO QAM 12/14/23 [History] Aspirin 325 mg PO BID #60 tab 12/20/23 [Rx] HYDROcodone/APAP 7.5-325MG [Ector 7.5-325] 1 - 2 tab PO Q6H PRN #32 tab 12/20/23 [Rx] Sennosides [Senokot] 2 tab PO DAILY PRN #60 tablet 12/20/23 [Rx] Follow up Appointment(s)/Referral(s): Charan Rivero DO [Doctor of Osteopathic Medicine] - 2 Weeks Activity/Diet/Wound Care/Special Instructions: Weightbearing as tolerated with a walker. CPM 5-6h daily as tolerated. Leave dressing intact. Dressing may be removed by home care nurse or by patient in 7 days. Then change dressing twice daily until follow up. May shower with initial dressing intact and after removal. If dressing become saturated, please remove. Recommend use of compression stockings daily until follow up to help prevent swelling and blood clots. May remove at night before sleeping. Please take aspirin 325mg twice daily for 30 days to prevent blood clots. Please follow up with [facility] and call with any questions or concerns, . Discharge Disposition: TRANSFER TO SNF/ECF
[2023-12-22 10:18] VITALS: RESP 18
--- NOTE | 2023-12-22 11:12 | P.PN ---
Subjective Progress Note Date: 12/22/23 Hospital course: Patient is a Very pleasant 68-year-old female with a past medical history of hypertension, hypothyroidism, and obesity class III with BMI of 51.7 kg/m. She is currently admitted under orthopedic surgery team status post elective right total knee arthroplasty. We were consulted for medical management throughout hospitalization. Physical exam: Patient was seen and fully evaluated at bedside.She is currently postoperative day 2 and appears to be doing well. Patient reports controlled postoperative pain reading only mild at this time. She denies having any headache, lightheadedness, dizziness, chest pain, palpitations, shortness of breath, cough or congestion, abdominal pain, nausea, vomiting, or any other complaints. She reports urinating without difficulties and states last bowel movement was on 12/20/23. Vital signs reviewed and stable. General: Nontoxic, no distress and appears stated age. Derm: Skin warm and dry, normal coloration for ethnicity. Head: Atraumatic, normocephalic and symmetric. Eyes: EOMs intact, no lid lag, and anicteric sclera Mouth: no lip lesions, mucus membranes moist Cardiovascular: regular rate and rhythm with normal S1S2, no murmur, positive posterior tibial pulses bilaterally, and cap refill < 2 seconds. Lungs: Respirations even, regular, and unlabored on room air. Lungs CTA bilaterally, no rhonchi, no rales, no wheezing, and no accessory muscle usage. Abdominal: soft, nontender to palpation, no guarding, no appreciable organomegaly Ext: Movement and sensation intact. No gross muscle atrophy, no edema, no contractures. Postoperative dressing in place right knee. Neuro: Speech clear, face symmetrical and CN II-XII grossly intact with no noted focal neuro deficits Psych: Alert and oriented to person, place, time, and situation. Appropriate and pleasant affect. Assessment and Plan of Care: Status post right total knee arthroplasty Management per primary orthopedic surgery team including DVT prophylaxis, pain management, weightbearing, wound/dressing management, and PT/OT. Currently DVT prophylaxis with aspirin 325 mg twice daily. Hypertension Patient slightly hypotensive this morning with pressure 95/55. Likely secondary to pain medications as patient denies having any other complaints at this time. Repeat vital signs again this morning, Continue with amlodipine 5 mg daily and hold for systolic pressure less than 100. Hypothyroidism Continue daily medication regimen with levothyroxine 100 g each morning on Saturdays and Sundays and 200 g on the mornings /Tue/Tuesday//Tuesday. Data reviewed: Postoperative labs reviewedShowing stable acute on chronic blood loss anemia with preoperative hemoglobin of 10.0 on postoperative hemoglobin of 9.3.BMP was unremarkable. Magnesium 1.8. Vital signs reviewed.Morning blood pressure soft at 95/55 and amlodipine held this morning. Heart rate was 92, respiratory rate 17, temp 98.7F, SpO2 of 91% on room air. Thank you for allowing us to participate in the care of this pleasant patient. Do not hesitate to contact us with questions. Someone can be reached from the [facility] hospitalist group all hours of the day at [phone] or via [employer]. Patient was seen independently by Nurse Pracitioner. This document was prepared using [employer] dictation software. Please allow for errors in barn boss, while rare they do occur. I reviewed the documentation as provided by the RUDY above, who is the original author of this note. I agree with the documented assessment and plan, with the following changes: none Objective - Vital Signs Vital signs: Vital Signs Temp 98.8 F 12/22/23 00:51 Pulse 88 12/22/23 00:51 Resp 19 12/22/23 00:51 BP 126/67 12/22/23 00:51 Pulse Ox 93 L 12/22/23 00:51 FiO2 Intake & Output 12/21/23 12/22/23 12/22/23 18:59 06:59 18:59 Intake Total 120 Balance 120 Intake: Oral 120 Other: Voiding Method Toilet # Voids 1 2 - Labs CBC & Chem 7: 12/21/23 06:37 12/21/23 06:37 Labs: Abnormal Lab Results - Last 24 Hours (Table) 12/21/23 12/21/23 Range/Units 06:37 06:37 RBC 3.15 L (4.10-5.20) X 10*6/uL Hgb 9.3 L (12.0-15.0) g/dL Hct 29.4 L (37.2-46.3) % MCHC 31.6 L (32.0-37.0) g/dL RDW 14.6 H (11.5-14.5) % Lymphocytes # 0.82 L (0.90-5.00) X 10*3/uL Eosinophils # 0.02 L (0.04-0.35) X 10*3/uL Glucose 125 H (70-110) mg/dL Calcium 8.6 L (8.7-10.3) mg/dL
[2023-12-24] MEDS ORDERED: LEVOTHYROXINE 100 MCG TAB PO SCH (06:30)
== END 2023-12-22 13:30 ==
LOC: OR 07:38 → 4SSUR 11:10 → OR 12:18 → 4SSUR 12-21 21:31
PROVIDERS: ADMIT Orthopaedic Surgery; ATTEND Orthopaedic Surgery
DX: M17.11 Unilateral primary osteoarthritis, right knee (principal); M25.761 Osteophyte, right knee; G89.18 Other acute postprocedural pain; D62 Acute posthemorrhagic anemia; I10 Essential (primary) hypertension; E03.9 Hypothyroidism, unspecified; F32.A Depression, unspecified; E66.01 Morbid (severe) obesity due to excess calories; Z68.43 Body mass index [BMI] 50.0-59.9, adult; Z87.891 Personal history of nicotine dependence; Z96.652 Presence of left artificial knee joint; Z96.641 Presence of right artificial hip joint; Z79.82 Long term (current) use of aspirin; Z79.890 Hormone replacement therapy; Z79.899 Other long term (current) drug therapy; Z88.0 Allergy status to penicillin; Z91.040 Latex allergy status
CPT/HCPCS: 64448; 64999; 80048; 83735; 85025; 96361; 96365; 96366; 96375